=== PATIENT | female | born 1960 | race African-American/Black ===

== ENCOUNTER 2019-06-21 22:59 | Emergency (ER) | payer OTHER ==
[~2019-06-21] VITALS: Ht 162.6 cm; Wt 59.0 kg
--- NOTE | 2019-06-21 23:05 | NUR ---
PT AAOX4. BIBRA. 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 PLACED ON MONITOR AND PULSE OX. VSS. NO ACUTE DISTRESS NOTED.
[2019-06-21] MEDS ORDERED: MORPHINE SULFATE INJ 4 MG/ML DISP.SYRIN ONE (23:12)
[2019-06-21] MEDS ORDERED: ONDANSETRON HCL/PF 4 MG/2 ML VIAL ONE (23:12)
--- NOTE | 2019-06-21 23:18 | NUR ---
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
[2019-06-21] MEDS ORDERED: ONDANSETRON HCL/PF 4 MG/2 ML VIAL IVP ONE (23:30)
[2019-06-21] MEDS ORDERED: IV NS 0.9% 500 ML BAG IV ONE (23:30)
[2019-06-21] MEDS ORDERED: MORPHINE SULFATE INJ 2 MG/ML DISP.SYRIN IV ONE (23:30)
[2019-06-21 23:32] LABS: BASOPHILS % (AUTO) 0.5 % (0.0-2.0); EOSINOPHILS % (AUTO) 0.7 % (0.0-6.0); HEMATOCRIT 39 % (33-45); HEMOGLOBIN 12.6 g/dL (11.5-14.8); LYMPHOCYTES # (AUTO) 2.2 /CMM (0.8-4.8); LYMPHOCYTES % (AUTO) 41.6 % (20.0-44.0); MEAN CORPUSCULAR HGB CONC 32 g/dl (31.0-36.0); MEAN CORPUSCULAR VOLUME 82 fL (82-100); MONOCYTES # (AUTO) 0.5 /CMM (0.1-1.30); MONOCYTES % (AUTO) 8.8 % (2.0-12.0); NEUTROPHILS # (AUTO) 2.5 /CMM (1.8-8.9); NEUTROPHILS % (AUTO) 48.4 % (43.0-81.0); PLATELET COUNT (AUTO) 260 /CMM (150-450); RED BLOOD CELL COUNT(AUTO) 4.82 MIL/uL (4.0-5.2); WHITE BLOOD COUNT (AUTO) 5.2 K/uL (4.3-11.0)
--- NOTE | 2019-06-21 23:33 | NUR ---
BROUGHT TO CT
[2019-06-21 23:34] LABS: CALCIUM, SERUM 9.7 mg/dL (8.5-10.1); CREATININE 0.9 mg/dL (0.6-1.3); POTASSIUM 3.1 mmol/L (3.5-5.1)
[2019-06-21 23:40] LABS: ALBUMIN 4.1 g/dL (3.4-5.0); BILIRUBIN,DIRECT 0.1 mg/dL (0.0-0.2); BILIRUBIN,TOTAL 0.5 mg/dL (0.2-1.0); TOTAL PROTEIN, SERUM 7.7 g/dL (6.4-8.2)
--- NOTE | 2019-06-21 23:45 | NUR ---
ZACHARY HOPE ([facility]) [phone]
--- NOTE | 2019-06-22 00:23 | NUR ---
URINE COLLECTED AND SENT TO THE LAB.
[2019-06-22] MEDS ORDERED: KETOROLAC TROMETHAMINE INJ 30 MG/ML VIAL ONE (00:27)
[2019-06-22] MEDS ORDERED: ONDANSETRON HCL/PF 4 MG/2 ML VIAL ONE (00:27)
[2019-06-22] MEDS ORDERED: KETOROLAC TROMETHAMINE INJ 30 MG/ML VIAL IV ONE (00:30)
[2019-06-22] MEDS ORDERED: ONDANSETRON HCL/PF - ER 4 MG/2 ML VIAL IV ONE (00:30)
[2019-06-22 00:38] LABS: APPEARANCE,URINE Clear (CLEAR); BILIRUBIN,URINE Negative (NEGATIVE); BLOOD, URINE Moderate Ery/uL (NEGATIVE); COLOR,URINE Yellow (YELLOW); KETONES,URINE Negative (NEGATIVE); LEUKOCYTE ESTERASE ,URINE Small (NEGATIVE); NITRITE, URINE Negative (NEGATIVE); PROTEIN,URINE Negative (NEGATIVE); UGLUCOSE Negative (NEGATIVE); UROBILINOGEN,URINE 0.2 EU/dL (0.2)
--- NOTE | 2019-06-22 00:43 | NUR ---
MD'S VERBAL ORDER TO GIVE 500ML OF NS 0.9% BOLUS.
--- NOTE | 2019-06-22 00:43 | NUR ---
IV 500ML NS 0.9% BOLUS ADMINISTERED.
[2019-06-22 01:16] LABS: BACTERIA,URINE Few /HPF (None Seen); RBC,URINE 51-80 /HPF (0-2); SQUAMOUS EPITHELIAL CELL,UR Few /HPF (None Seen)
--- NOTE | 2019-06-22 02:41 | NUR ---
Patient is resting comfortably in bed. Easily aroused. VSS.
--- NOTE | 2019-06-22 04:15 | NUR ---
Patient is resting comfortably in bed. Easily aroused. VSS. Pt awake.
[2019-06-22] MEDS ORDERED: MORPHINE SULFATE INJ 4 MG/ML DISP.SYRIN ONE (05:26)
[2019-06-22] MEDS ORDERED: MORPHINE SULFATE INJ 10 MG/ML DISP.SYRIN IV ONE (05:30)
--- NOTE | 2019-06-22 05:55 | NUR ---
Beth lynn in [facility] - 06/22/19 at 0630 by ARLINE CALLED NURSING SUP FOR BED
--- NOTE | 2019-06-22 06:19 | NUR ---
PATIENT STATES THAT HER SON WILL COME PICK HER UP.
--- NOTE | 2019-06-22 06:19 | NUR ---
IV removed. Catheter intact and site benign. Pressure and 4x4 applied to site. No bleeding noted.
[2019-06-22 06:35] VITALS: BP 117/88
--- NOTE | 2019-06-22 06:36 | NUR ---
PATIENT PICKED UP BY SON, JAYY SHARMA.
--- NOTE | 2019-06-22 06:36 | NUR ---
Patient discharged to home in stable condition. Written and verbal after care instructions given. Patient verbalizes understanding of instruction.
== END 2019-06-22 06:36 | disposition home or self-care (01) ==
LOC: ER 22:59
DX: N13.2 Hydronephrosis with renal and ureteral calculous obstruction (principal); R11.0 Nausea; R07.89 Other chest pain
CPT/HCPCS: 36415; 71045; 74176; 80048; 80076; 81001; 83690; 84484; 85025; 87086; 93005; 96374; 96375 ×2; 96376; 99285; J1885; J2270 ×2; J2405 ×3; J7040 ×2; 81000-TC